=== PATIENT | female | born 1975 | race Two or more races ===

== ENCOUNTER → 2017-06-27 | Outpatient (CLI) | payer OTHER ==
[~2017-06-27] MED LIST: ATARAX25 MG PO; CATAFLAM50 MG PO; COZAAR50 MG; HYZAAR 50/12.51 TAB PO; KETO10TA2 PO; ORPH100T PO; PREDNISONE20 MG; ZANTAC300 MG PO; ZYRTEC10 MG PO
== END | disposition home or self-care (01) ==
LOC: PPHC 14:42
DX: I10 Essential (primary) hypertension (principal)

== ENCOUNTER 2017-07-05 10:07 | Outpatient (CLI) | payer OTHER | END 2017-07-05 17:00 | disposition home or self-care (01) | LOC: MAMO-SONO 10:07 | DX: N64.4 Mastodynia (principal); Z12.31 Encounter for screening mammogram for malignant neoplasm of breast ==

== ENCOUNTER → 2017-07-06 06:34 | Outpatient (CLI) | payer OTHER | END | disposition home or self-care (01) | LOC: LAB 06:34 | DX: I10 Essential (primary) hypertension (principal); E78.5 Hyperlipidemia, unspecified; R51 Headache ==

== ENCOUNTER → 2018-01-30 | Day surgery (SDC) | payer OTHER | END | disposition home or self-care (01) | LOC: ADM 01-24 14:00 → AMB-ENDOS 06:00 | DX: K63.5 Polyp of colon (principal); K64.8 Other hemorrhoids; Z12.11 Encounter for screening for malignant neoplasm of colon ==

== ENCOUNTER 2018-06-06 14:22 | Outpatient (CLI) | payer OTHER | END 2018-06-06 14:40 | disposition home or self-care (01) | LOC: LAB 14:22 | DX: J11.1 Influenza due to unidentified influenza virus with other respiratory manifestations (principal); J20.0 Acute bronchitis due to Mycoplasma pneumoniae ==

== ENCOUNTER 2019-01-09 09:51 | Outpatient (CLI) | payer OTHER | END 2019-01-09 09:57 | disposition home or self-care (01) | LOC: RAD 09:51 | DX: M54.2 Cervicalgia (principal); M25.511 Pain in right shoulder ==

== ENCOUNTER 2019-05-08 11:06 | Outpatient (CLI) | payer OTHER | END 2019-05-08 15:11 | disposition home or self-care (01) | LOC: RAD 11:06 | DX: M54.2 Cervicalgia (principal) ==

== ENCOUNTER 2019-05-13 14:33 | Emergency (ER) | payer OTHER ==
[~2019-05-13] VITALS: Ht 162.6 cm; Wt 87.1 kg
== END 2019-05-13 19:57 | disposition home or self-care (01) ==
LOC: ER 14:33
DX: I16.0 Hypertensive urgency (principal); I10 Essential (primary) hypertension; M54.89 Other dorsalgia

== ENCOUNTER 2019-07-30 11:24 | Outpatient (CLI) | payer OTHER | END 2019-07-30 11:29 | disposition home or self-care (01) | LOC: LAB 11:24 | DX: Z20.828 Contact with and (suspected) exposure to other viral communicable diseases (principal) ==

== ENCOUNTER 2019-12-06 10:00 | Outpatient (CLI) | payer OTHER | END 2019-12-06 15:00 | disposition home or self-care (01) | LOC: PPH VACUNA 10:00 | DX: Z23 Encounter for immunization (principal) ==

== ENCOUNTER 2020-12-14 14:39 | Outpatient (CLI) | payer OTHER | END 2020-12-14 17:00 | disposition home or self-care (01) | LOC: PPH VACUNA 14:39 | PROVIDERS: ATTEND Emergency Medicine Pediatric Emergency Medicine | DX: Z23 Encounter for immunization (principal) ==